=== PATIENT | male | born 1995 | race Caucasian/White ===

== ENCOUNTER 2019-06-26 14:06 | Outpatient (CLI) | payer MEDICARE ==
--- NOTE | 2019-06-26 14:49 | RAD ---
KUB: 06/26/2019 HISTORY: Swallowed foreign body FINDINGS: There is large volume metallic foreign bodies overlying the mid left abdomen and the lower abdomen/upper pelvis consistent with the patient's history of ingestion of metallic foreign bodies. The conglomerate of metallic foreign bodies measures at least 11 x 13 cm. Impression: Numerous ingested metallic foreign bodies, similar in configuration when compared to 05/17 CT examination.
== END 2019-06-26 14:07 | disposition home or self-care (01) ==
LOC: BICRAD 14:06
PROVIDERS: ATTEND Internal Medicine Gastroenterology
DX: T18.9XXA Foreign body of alimentary tract, part unspecified, initial encounter (principal)
CPT/HCPCS: 74019

== ENCOUNTER 2019-07-01 09:41 | Day surgery (SDC) | payer MEDICARE ==
[2019-07-01] MEDS ORDERED: Lidocaine 1% PF 5 ML VIAL ONE (09:52)
[2019-07-01] MEDS ORDERED: Succinylcholine Chloride 20 MG/ML 10 ml SYRINGE FS ONE (09:52)
[2019-07-01] MEDS ORDERED: PROPOFOL 200 MG/20 ML VIAL ONE (09:52)
--- NOTE | 2019-07-01 16:05 | OP ---
DATE OF PROCEDURE: 07/01/2019 PREPROCEDURE DIAGNOSIS: Ingestion of foreign body. POSTPROCEDURE DIAGNOSIS: 1. Ingestion of foreign body with matted AA batteries, unable to remove from the stomach endoscopically. 2. Chronic inflammatory changes in the stomach. PROCEDURES PERFORMED: 1. Esophagogastroduodenoscopy. 2. Intraoperative consult, Dr. Liu. RECOMMENDATIONS: 1. This patient will need surgical removal of these foreign bodies. There seems to be significant inflammation in the stomach. 2. Would start on a PPI. We will defer to Dr. Liu when he plans on resection. PROCEDURE IN DETAIL: After the patient's mother was informed of the risks, benefits, and possible complications of endoscopy including perforation, bleeding, reaction to medication, and aspiration, informed consent was obtained. The films from Monday were reviewed, showing foreign body over the lower abdomen. However, this is away the plain film looked on his CAT scan last month when he had a CAT scan, showing metallic foreign bodies in the stomach, showing the stomach lumen proper. Anesthesia was TIVA, converted to general. The patient was sedated. The bite-block was placed inside his orifices. The endoscope was advanced to the esophagus and stomach. The stomach was notable for what appeared to be AA battery in the stomach and then in the antrum, a matted appearance of probably several batteries, that had fused together. I could not pass these into the duodenum. There was quite a bit of inflammatory reaction in the stomach. The scope was removed removed endoscopically. He is going to need surgery. The patient tolerated the procedure well. There were no complications. Job ID: [id number]
== END 2019-07-01 14:16 | disposition home or self-care (01) ==
LOC: SDC 09:41
PROVIDERS: ATTEND Internal Medicine Gastroenterology
PROC: 0DJ08ZZ Inspection of Upper Intestinal Tract, Via Natural or Artificial Opening Endoscopic (ICD-10-PCS; principal; 2019-07-01)
DX: T18.2XXA Foreign body in stomach, initial encounter (principal); K29.50 Unspecified chronic gastritis without bleeding; F84.0 Autistic disorder; F41.9 Anxiety disorder, unspecified; F32.9 Major depressive disorder, single episode, unspecified; Z79.899 Other long term (current) drug therapy; Z88.1 Allergy status to other antibiotic agents; Z91.018 Allergy to other foods
CPT/HCPCS: J2001; J2704

== ENCOUNTER 2019-07-30 07:26 | Inpatient (IN) | payer MEDICARE ==
[2019-07-29 13:39] VITALS: BMI 19.9
[2019-07-30 08:23] LABS: #Eosinphils 0.5 thou/uL (0.0-0.7); #Lymphocytes 2.3 thou/uL (1.20-3.40); %Basophils 0.5 % (0.0-1.0); %Eosinophils 5.2 % (0.0-10.0); %Lymphocytes 26.6 % (21.0-51.0); %Monocytes 10.9 % (0.0-10.0); %Neutrophils 56.9 % (42.0-75.0); Hemoglobin 14.8 g/dL (14.0-18.0); Mean Corpuscular HGB CONC 33.2 g/dL (32.0-36.0); Mean Corpuscular Volume 90.3 fL (78.0-98.0); Mean Platelet Volume 7.1 fL (7.4-10.4); Platelet Count 307 thou/uL (130-400); RBC Distribution Width 12.7 % (11.5-14.5); Red Blood Cell (RBC) Count 4.94 mill/uL (4.70-6.10); White Blood Cell (WBC) Count 8.8 thou/uL (4.8-10.8)
[2019-07-30 08:42] LABS: Anion Gap 9 mmol/L (10-20); BUN (Urea Nitrogen) 9 mg/dL (8.9-20.6); Calc. Creatinine Clearance 112 mL/min (70-130); Calcium 8.6 mg/dL (7.8-10.44); Carbon Dioxide 28 mmol/L (22-29); Chloride 106 mmol/L (98-107); Estimated GFR-MDRD Greater than 90; Glucose 87 mg/dL (70-105); Potassium 3.9 mmol/L (3.5-5.1); Sodium 139 mmol/L (136-145)
[2019-07-30] MEDS ORDERED: Levofloxacin 500 mg/D5W 100 ml Premix Bag ONE (08:57)
--- NOTE | 2019-07-30 09:34 | RAD ---
Exam: 2 views abdomen Comparison 06/26/2019 HISTORY: Foreign body FINDINGS: Redemonstration multiple metallic densities in the distal colon. No significant change. IMPRESSION: Stable multiple metallic densities in the colon, compatible with ingested metallic foreig n bodies.
[2019-07-30] MEDS ORDERED: Dexamethasone 20 MG/5 ML VIAL ONE (09:38)
[2019-07-30] MEDS ORDERED: Ondansetron PF 4 MG/2 ML Vial ONE (09:38)
[2019-07-30] MEDS ORDERED: Lidocaine 1% PF 5 ML VIAL ONE (09:38)
[2019-07-30] MEDS ORDERED: Rocuronium Bromide 10 MG/ML (10ML VIAL) ONE (09:38)
[2019-07-30] MEDS ORDERED: Succinylcholine Chloride 20 MG/ML 10 ml SYRINGE FS ONE (09:38)
[2019-07-30] MEDS ORDERED: Glycopyrrolate 0.2 MG/ML 5 ML SYRINGE ONE (09:38)
[2019-07-30] MEDS ORDERED: Bupivacaine HCl 0.5%/Epinephrine 1:200,000/PF 30 ml Vial ONE (09:38)
[2019-07-30] MEDS ORDERED: PROPOFOL 200 MG/20 ML VIAL ONE (09:38)
[2019-07-30] MEDS ORDERED: Fentanyl 250 MCG/5 ML VIAL ONE (09:48)
[2019-07-30] MEDS ORDERED: Midazolam HCl 2 mg/2 ml Vial ONE (09:58)
--- NOTE | 2019-07-30 11:26 | RAD ---
EXAM: Single view of the abdomen HISTORY: Removal of metallic foreign bodies from stomach COMPARISON: 07/30/2019 FINDINGS: Single view of the abdomen shows a nonspecific, nonobstructive bowel gas pattern. The previ ously seen radiopaque foreign bodies in the stomach have been removed. No residual foreign bodies are seen in the stomach that are radiopaque. The bones are unremarkable. IMPRESSION: Removal of radiopaque foreign bodies in the stomach.
[2019-07-30] MEDS ORDERED: Fentanyl 100 MCG/2 ML VIAL SLOW IVP PRN (11:48)
[2019-07-30] MEDS ORDERED: Ondansetron PF 4 MG/2 ML Vial IVP PRN (11:48)
[2019-07-30] MEDS ORDERED: hydrALAZINE 20 MG/ML VIAL SLOW IVP PRN (11:48)
[2019-07-30] MEDS ORDERED: Promethazine HCl 25 MG/ML VIAL IM PRN ×2 (11:48→12:11)
[2019-07-30] MEDS ORDERED: Ondansetron HCl/PF 4 MG/2 ML Vial IVP PRN (12:11)
[2019-07-30] MEDS ORDERED: Promethazine HCl 25 MG/ML VIAL SLOW IVP PRN (12:11)
[2019-07-30] MEDS ORDERED: Meperidine HCl/PF 25 MG/ML VIAL SLOW IVP PRN (12:11)
[2019-07-30] MEDS ORDERED: Fentanyl 100 MCG/2 ML VIAL ONE (12:24)
[2019-07-30] MEDS: Ketorolac Tromethamine 30 MG/ML VIAL IVP PRN (13:40)
[2019-07-30] MEDS: Fentanyl 100 MCG/2 ML VIAL SLOW IVP PRN ×2 (13:40→15:41)
[2019-07-30] MEDS: D5 1/2 NS w/20 mEq KCL 1,000 ML IV SCH (15:44)
--- NOTE | 2019-07-30 16:18 | OP ---
DATE OF PROCEDURE: 07/30/2019 PREOPERATIVE DIAGNOSIS: Retained foreign body, stomach. POSTOPERATIVE DIAGNOSIS: Retained foreign body, stomach. PROCEDURES PERFORMED: 1. Exploratory laparotomy, gastrotomy, and multiple foreign body removal. 2. Repair of small bowel deserosalization. ANESTHESIA: General. ESTIMATED BLOOD LOSS: Minimal. COMPLICATIONS: None. FINDINGS: There were multiple magnetic objects removed from the stomach in bulk as well as individually. There was some nonmetal toys removed from the stomach as well. Postprocedure film shows no residual obvious foreign bodies. INDICATIONS: The patient is a 23-year-old male, who presented with abdominal pain, had a CT scan showing multiple foreign bodies in the stomach. EGD showed most of these foreign bodies to be magnetic. DESCRIPTION OF PROCEDURE: The patient was taken to the operating room and laid supine on the operating room table. After general anesthetic was obtained, a Akbar was placed. The abdomen was shaved, prepped, and draped in a sterile fashion. He underwent TAP block placement before surgery as well. Midline incision was made, cautery dissected down into the abdominal cavity. There were multiple posterior abdominal wall adhesions, taken down sharply. There was some serosal tears in the small bowel during this part of the procedure. No full-thickness injury. These were all oversewn using silk serosal sutures. The large retained foreign body could be felt in the stomach. A gastrotomy was made longitudinally on the distal greater curve. Multiple foreign bodies were removed, most of which were magnetic and attached. There were a few toys that were nonmetallic, that were removed as well. Before the gastrotomy was closed, x-ray was performed, which showed no obvious retained foreign bodies in the abdomen. A RUBEN-60 laparoscopic stapler with a green load and staple line reinforcements used to close the longitudinal gastrotomy. There was no bleeding on the staple line. The abdomen was irrigated using 3 L of warm sterile solution until returns were clear. There was no ongoing bleeding. The small bowel areas of serosal repairs appear intact without evidence of further injury. All instrument counts, needle counts, and lap counts were correct. PDS was used to close the fascial defect from the top and the bottom and tied in the middle. Subcutaneous tissues were irrigated copiously using pulse irrigation. The skin was closed using 3-0 Vicryl, 4-0 Monocryl, and Dermabond. The patient was sent to Recovery in stable condition. All instrument counts, needle counts, and lap counts were correct. Job ID: [id number]
[2019-07-30] MEDS: HYDROcodone/Acetaminophen 7.5/325 mg Tablet PO PRN (19:35)
[2019-07-30] MEDS: Famotidine/PF 20 mg/2ml Vial SLOW IVP SCH (21:08)
[2019-07-30] MEDS: Famotidine 20 MG TAB PO SCH (21:08)
[2019-07-31] MEDS: Ketorolac Tromethamine 30 MG/ML VIAL IVP PRN ×3 (00:17→15:11)
[2019-07-31] MEDS: D5 1/2 NS w/20 mEq KCL 1,000 ML IV SCH ×2 (00:53→16:42)
[2019-07-31 05:21] LABS: Anion Gap 8 mmol/L (10-20); BUN (Urea Nitrogen) 9 mg/dL (8.9-20.6); Calc. Creatinine Clearance 109 mL/min (70-130); Calcium 8.2 mg/dL (7.8-10.44); Carbon Dioxide 28 mmol/L (22-29); Chloride 105 mmol/L (98-107); Estimated GFR-MDRD Greater than 90; Glucose 103 mg/dL (70-105); Potassium 3.8 mmol/L (3.5-5.1); Sodium 137 mmol/L (136-145)
[2019-07-31 05:25] LABS: Band 9 % (5-11); Hemoglobin 12.5 g/dL (14.0-18.0); Lymphocytes 11 % (21-51); MDiff Complete? YES; Mean Corpuscular HGB CONC 33.2 g/dL (32.0-36.0); Mean Corpuscular Hemoglobin 29.8 pg (27.0-31.0); Mean Corpuscular Volume 89.9 fL (78.0-98.0); Mean Platelet Volume 7.2 fL (7.4-10.4); Monocytes 4 % (0-10); Neutrophil 76 % (42-75); Platelet Count 264 thou/uL (130-400); Platelet Morphology Comment Appears Adequate; RBC Distribution Width 12.7 % (11.5-14.5); RBC Morphology Normal; Red Blood Cell (RBC) Count 4.21 mill/uL (4.70-6.10); White Blood Cell (WBC) Count 21.6 thou/uL (4.8-10.8)
--- NOTE | 2019-07-31 07:17 | PDOC.GSPN ---
Surgery Progress Note: Subj - Subjective Patient reports: feels better, pain well controlled, tolerating liquids well, no flatus, pain is less Narrative: Post-op day one s/p ex-lap for foreign bodies in stomach in intellectually disabled 23 yo male. Doing well this am & reports he is on his 7th lap around the unit. Has been tolerating the liquid diet. Had some nausea with vomiting x1 last night. No further vomiting & no nausea now. Has burped a few times, but no flatus or BM yet. Reports belly is sore, but feels as if pain is well- controlled. Surgery Progress Note: Obj - Vital signs Vital signs: Vital Signs - Most Recent Temp Pulse Resp BP Pulse Ox 98.8 F 86 16 101/51 L 97 07/31/19 03:55 07/31/19 03:55 07/31/19 03:55 07/31/19 03:55 07/31/19 03:55 - Physical Exam General: no distress, well developed, well nourished Cardiovascular: regular rate and rhythm Respiratory: clear to auscultation Abdomen: nondistended, decreased bowel sounds, appropriately tender Musculoskeletal: normal gait Wound: healing well (Wound edges well-approximated. No drainage, edema, erythema , induration, or fluctuance.) Surgery Progress Note: Results - Labs Result Diagrams: 07/31/19 04:44 07/31/19 04:44 Lab results: Laboratory Results - last 24 hr 07/31/19 07/31/19 04:44 04:44 WBC 21.6 H RBC 4.21 L Hgb 12.5 L Hct 37.8 L MCV 89.9 MCH 29.8 MCHC 33.2 RDW 12.7 Plt Count 264 MPV 7.2 L Neutrophils % (Manual) 76 H Band Neuts % (Manual) 9 Lymphocytes % (Manual) 11 L Monocytes % (Manual) 4 Plt Morphology Comment Appears Adequate RBC Morph Comment Normal Sodium 137 Potassium 3.8 Chloride 105 Carbon Dioxide 28 Anion Gap 8 L BUN 9 Creatinine 0.78 Estimated GFR (MDRD) Greater than 90 Glucose 103 Calcium 8.2 Surgery Progress Note: A/P - Problem (1) S/P exploratory laparotomy Current Visit: Yes Status: Acute - Plan Plan: Doing well post-op day 1 s/p ex-lap for multiple stomach foreign bodies. Anticipate slowly advancing diet starting today. Should be able to go home soon. Will continue to monitor bowel fxn. Encouraged continued regular ambulation & use of incentive spirometer. Addendum - Physician - Physician Attestation Date/Time: 07/31/19 7163 I personally performed or re-performed the physical examination and medical decision making. I have verified all student documentation or findings, including history, physical exam and/or medical decision making. Will advance to full liquids Home tomorrow or Monday
[2019-07-31] MEDS: HYDROcodone/Acetaminophen 7.5/325 mg Tablet PO PRN ×3 (08:09→20:08)
[2019-07-31] MEDS: Famotidine 20 MG TAB PO SCH ×2 (08:10→20:07)
[2019-07-31] MEDS: Escitalopram Oxalate 10 mg Tablet PO SCH (08:10)
[2019-07-31] MEDS ORDERED: METHYLPHENIDATE HCL 36 MG PO SCH (09:00)
[2019-07-31] MEDS: Famotidine/PF 20 mg/2ml Vial SLOW IVP SCH ×2 (12:04→20:38)
[2019-07-31] MEDS ORDERED: D5 1/2 NS w/20 mEq KCL 1,000 ML IV SCH (15:04)
[2019-08-01] MEDS: HYDROcodone/Acetaminophen 7.5/325 mg Tablet PO PRN ×2 (04:22→16:02)
[2019-08-01] MEDS: Famotidine/PF 20 mg/2ml Vial SLOW IVP SCH (08:01)
[2019-08-01] MEDS: Escitalopram Oxalate 10 mg Tablet PO SCH (08:07)
[2019-08-01] MEDS: Famotidine 20 MG TAB PO SCH (08:07)
--- NOTE | 2019-08-01 09:29 | PDOC.GSPN ---
Surgery Progress Note: Subj - Subjective Patient reports: no new complaints Narrative: Mr. Ramon is a 23 y/o male who is POD 2 from exploratory laparotomy to retrieve multiple foreign bodies in the stomach. He is doing well this morning and reports mild abdominal soreness. He is tolerating full liquid diet well without nausea or vomiting. His last meal was earlier this morning. He continues to ambulate, void on his own, and has passed 2 bowel movements. Surgery Progress Note: Obj - Vital signs Vital signs: Vital Signs - Most Recent Temp Pulse Resp BP Pulse Ox 98.4 F 93 14 96/57 L 96 08/01/19 07:38 08/01/19 07:38 08/01/19 07:38 08/01/19 07:38 08/01/19 07:40 - Physical Exam General: no distress Cardiovascular: regular rate and rhythm, no murmur Respiratory: clear to auscultation, normal respiratory effort, breath sounds present, other (Slightly reduced expansion from abdominal pain.) Abdomen: soft, decreased bowel sounds, appropriately tender (No rigidity or guarding.) Psychiatric: oriented to time, oriented to person, oriented to place Wound: dressing clean,dry,intact, healing well (No signs of erythema, induration , or purulent drainage.) Surgery Progress Note: Results - Labs Result Diagrams: 07/31/19 04:44 07/31/19 04:44 Surgery Progress Note: A/P - Plan Plan: Mr. Ramon is a 23 y/o male who is POD 2 from exploratory laparotomy to retrieve multiple foreign bodies in the stomach. -Continue to monitor pain -Advance diet to soft GI as tolerated -Likely discharge later today Addendum - Physician - Physician Attestation Date/Time: 08/01/19 3303 I personally performed or re-performed the physical examination and medical decision making. I have verified all student documentation or findings, including history, physical exam and/or medical decision making. Doing well. DC later today
[2019-08-01] MEDS: Ketorolac Tromethamine 30 MG/ML VIAL IVP PRN (10:11)
[2019-08-01 15:45] VITALS: BP 94/56; TEMP 98.1
--- NOTE | 2019-08-02 00:58 | DIS ---
DATE OF ADMISSION: 07/30/2019 DATE OF DISCHARGE: 08/01/2019 ADMIT DIAGNOSIS: Foreign body, stomach. PROCEDURES PERFORMED: Exploratory laparotomy, gastrotomy, and foreign body removal by Dr. Liu without complication. CONDITION ON DISCHARGE: Improved. STAFF: MD Alexa HOSPITAL COURSE: The patient was immediately started on a clear liquid diet, which he tolerated. On postop day 1, he was advanced to full liquids. On postop day 2, he is ambulatory. His pain is minimal. Vital signs are stable. His wound looks clear, and he is tolerating the full liquids. He is discharged home. Told the mom that he should take mostly soups and casseroles for the next few days before advancing diet. Prescription for hydrocodone and Zofran sent over to [facility] in [place]. He will return to see me in 2 weeks. Job ID: [id number]
== END 2019-08-01 17:39 | disposition home or self-care (01) | DRG 328 ==
LOC: SURG A 07:26
PROVIDERS: ADMIT Surgery; ATTEND Surgery
PROC: 0DC60ZZ Extirpation of Matter from Stomach, Open Approach (ICD-10-PCS; principal; 2019-07-30)
PROC: 0DQ60ZZ Repair Stomach, Open Approach (ICD-10-PCS; 2019-07-30)
DX: T18.2XXA Foreign body in stomach, initial encounter (principal); X58.XXXA Exposure to other specified factors, initial encounter
CPT/HCPCS: 36415; 74018; 74019; 80048; 85025; 88307; J0670; J1100; J1885; J1956; J2001; J2250; J2405; J2704; J3010; S0028

== ENCOUNTER 2021-09-30 06:37 | Inpatient (IN) | payer MEDICARE ==
[2021-09-30] MEDS ORDERED: Fentanyl 100 MCG/2 ML VIAL ONE ×3 (06:53→10:28)
[2021-09-30] MEDS ORDERED: Promethazine HCl 25 MG/ML VIAL IM PRN ×2 (07:43→10:23)
[2021-09-30] MEDS ORDERED: Morphine Sulfate 2 MG/ML SYRINGE SLOW IVP PRN (07:43)
[2021-09-30] MEDS ORDERED: Ondansetron HCl/PF 4 MG/2 ML Vial IVP PRN (07:43)
[2021-09-30] MEDS ORDERED: Meperidine HCl/PF 25 MG/ML VIAL SLOW IVP PRN (07:43)
[2021-09-30] MEDS ORDERED: Promethazine HCl 25 MG/ML VIAL IVPB PRN (07:43)
[2021-09-30] MEDS ORDERED: HYDROmorphone 2 MG/ML VIAL SLOW IVP PRN (07:43)
[2021-09-30] MEDS ORDERED: Midazolam HCl 2 mg/2 ml Vial ONE (08:31)
[2021-09-30] MEDS ORDERED: cefOXitin 2 GM VIAL ONE (08:32)
[2021-09-30] MEDS ORDERED: Sodium Chloride 0.9% 100 ML ONE (08:33)
[2021-09-30] MEDS ORDERED: Ondansetron PF 4 MG/2 ML Vial IVP PRN (10:23)
[2021-09-30] MEDS ORDERED: hydrALAZINE 20 MG/ML VIAL SLOW IVP PRN (10:23)
[2021-09-30] MEDS ORDERED: Dextrose 50% Abboject 50 ML SYRINGE SLOW IVP PRN (10:23)
[2021-09-30] MEDS ORDERED: Dextrose 5% in Water 1,000 ML IV PRN (10:23)
[2021-09-30] MEDS: HYDROcodone/Acetaminophen 7.5/325 mg Tablet PO PRN ×2 (12:09→18:04)
[2021-09-30] MEDS: D5 1/2 NS w/20 mEq KCL 1,000 ML IV SCH ×2 (12:09→20:45)
[2021-09-30] MEDS: Morphine 4 MG/ML VIAL SLOW IVP PRN ×3 (14:48→23:30)
[2021-09-30] MEDS: Famotidine/PF 20 mg/2ml Vial SLOW IVP SCH (19:51)
[2021-09-30] MEDS: Famotidine 20 MG TAB PO SCH (19:52)
[2021-10-01] MEDS: HYDROcodone/Acetaminophen 7.5/325 mg Tablet PO PRN ×3 (03:06→18:20)
[2021-10-01] MEDS: Morphine 4 MG/ML VIAL SLOW IVP PRN ×2 (05:36→08:17)
[2021-10-01] MEDS: D5 1/2 NS w/20 mEq KCL 1,000 ML IV SCH ×3 (05:36→18:20)
[2021-10-01] MEDS: Famotidine 20 MG TAB PO SCH ×2 (08:17→19:55)
[2021-10-01] MEDS: Famotidine/PF 20 mg/2ml Vial SLOW IVP SCH ×2 (08:18→19:24)
[2021-10-01] MEDS: Escitalopram Oxalate 10 mg Tablet PO SCH (08:18)
[2021-10-01] MEDS ORDERED: PALIPERIDONE 6 MG PO SCH ×2 (09:00)
[2021-10-02] MEDS: HYDROcodone/Acetaminophen 7.5/325 mg Tablet PO PRN ×3 (04:43→22:56)
[2021-10-02] MEDS: Escitalopram Oxalate 10 mg Tablet PO SCH (07:43)
[2021-10-02] MEDS: Famotidine 20 MG TAB PO SCH ×2 (07:43→20:05)
[2021-10-02] MEDS: Famotidine/PF 20 mg/2ml Vial SLOW IVP SCH ×2 (07:45→20:14)
[2021-10-02] MEDS: Morphine 4 MG/ML VIAL SLOW IVP PRN (20:05)
[2021-10-03 06:38] VITALS: BMI 17.0
[2021-10-03] MEDS: Famotidine/PF 20 mg/2ml Vial SLOW IVP SCH (09:41)
[2021-10-03] MEDS: Famotidine 20 MG TAB PO SCH (09:47)
[2021-10-03] MEDS: Escitalopram Oxalate 10 mg Tablet PO SCH (09:47)
[2021-10-03 11:53] VITALS: BP 117/76; TEMP 97.8
== END 2021-10-03 14:00 | disposition home or self-care (01) | DRG 345 ==
LOC: SURG A 06:37 → EDSTATUS 09:19 → SURG A 11:07
PROVIDERS: ADMIT Surgery; ATTEND Surgery
PROC: 0DCH0ZZ Extirpation of Matter from Cecum, Open Approach (ICD-10-PCS; principal; 2021-09-30)
PROC: [UNRECOGNIZED PROCEDURE] (2021-09-30)
DX: T18.4XXA Foreign body in colon, initial encounter (principal); K56.7 Ileus, unspecified; Z20.822 Contact with and (suspected) exposure to COVID-19; F41.9 Anxiety disorder, unspecified; F32.A Depression, unspecified; J45.909 Unspecified asthma, uncomplicated; Z88.8 Allergy status to other drugs, medicaments and biological substances; Z79.899 Other long term (current) drug therapy
CPT/HCPCS: 36415; 74018; 76000; 80048; 85027; A4649; C1776; J0694; J2250; J2270; J2405; J3010; J3480; J3490; S0028; U0003; U0005

== ENCOUNTER 2023-02-17 09:49 | Outpatient (CLI) | payer MEDICARE | END 2023-02-17 09:50 | disposition home or self-care (01) | LOC: RAD 09:49 | PROVIDERS: ATTEND Surgery | DX: R10.33 Periumbilical pain (principal) | CPT/HCPCS: 74019 ==